=== PATIENT | female | born 1995 | race Caucasian/White ===

== ENCOUNTER 2017-03-19 19:58 | Emergency (ER) | payer BC, OTHER ==
[~2017-03-19] VITALS: Ht 162.6 cm; Wt 63.5 kg
[~2017-03-19 19:58] MED LIST: BCPILLS PO
[2017-03-19 20:24] VITALS: Ht 162.6 cm; Wt 63.5 kg
[2017-03-19 21:08] LABS: INFLUENZA B ANTIGEN Neg for Influ B (NEG)
[2017-03-19 21:28] VITALS: TEMP 36.7
[2017-03-19] MEDS ORDERED: SODIUM CHLORIDE 0.9% 1000ML 1,000 ML IV STA (21:53)
[2017-03-19] MEDS ORDERED: ONDANSETRON INJ 2 MG/ML 2 ML VIAL IV STA (21:53)
[2017-03-19 22:23] LABS: BASO % 0.1 %; BASO ABS # 0.01 K/uL (0-0.2); EOS % 0.1 %; EOS ABS # 0.01 K/uL (0-0.5); HEMATOCRIT 46.2 % (37-47); HEMOGLOBIN 16.4 g/dL (12.0-16.0); IG# 0.03 K/uL (0.00-0.02); LYMPH % 3.3 %; LYMPH ABS # 0.43 K/uL (1.2-3.4); MEAN CORPUSCULAR HEMOGLOBIN 31.2 pg (25-34); MEAN CORPUSCULAR HGB CONC 35.5 g/dl (32-36); MEAN PLATELET VOLUME 10.3 fL (7.4-10.4); MONO % 3.1 %; NEUT % 93.2 %; NEUT ABS # 11.98 K/uL (1.4-6.5); PLATELET COUNT 229 K/uL (130-400); RED CELL DISTRIBUTION WIDTH CV 13.1 % (11.5-14.5); RED CELL DISTRIBUTION WIDTH SD 41.5 fL (36.4-46.3); WHITE BLOOD COUNT 12.86 K/uL (4.8-10.8)
[2017-03-19 22:41] LABS: CALCIUM 9.3 mg/dl (8.5-10.1); CREATININE 0.99 mg/dl (0.60-1.20); POTASSIUM 4.3 mmol/L (3.5-5.1)
[2017-03-19] MEDS ORDERED: ONDA4TAB10 SL (23:07)
--- NOTE | 2017-03-19 23:08 | EMERGENCY ROOM VISIT NOTE ---
History First contact with patient: 21:34 Chief Complaint: GI ASSESSMENT Stated Complaint: VOMITING AND DIARRHEA SINCE 6AM Nursing Triage Summary: Pt states she woke up @ 0630 with n/v/d. [place] emesis and bm was @ 1999. History of Present Illness The patient is a 21 year old female who presents to the Emergency Room with complaints of vomiting and diarrhea. The patient reports she has had persistent nausea, vomiting and diarrhea since early this morning. She has been unable to keep any fluids down. She reports she has been dry heaving. She denies any sick contacts. She denies any recent antibiotic use. She does report that she ate at a [employer] yesterday, however several other people also ate there and did not become sick. She denies any foreign travel. She denies any unusual food or water sources. She denies abdominal pain, blood in her stools/vomit or fevers. Review of Systems A complete 10 point review of systems was reviewed with the patient with pertinent positives and negatives as per history of present illness. All else were negative. Past Medical/Surgical History Surgical Problems: (1) No significant past surgical history Family History No pertinent family history Social History Smoking Status: Current Every Day Smoker Drug Use: none Housing Status: lives with family Occupation Status: student Current/Historical Medications Scheduled Control Pills ( Control Pills), 1 TAB PO DAILY Ondasetron Odt (Zofran Odt), 4 MG SL Q6H Physical Exam Vital Signs Date Time Temp Pulse Resp B/P (MAP) Pulse Ox O2 Delivery O2 Flow Rate FiO2 03/19/17 23:34 90 16 114/67 100 03/19/17 21:28 36.7 109 20 102/74 98 Room Air 03/19/17 20:24 36.9 116 18 134/87 97 Room Air Physical Exam VITALS: Vitals are noted on the nurse's note and reviewed by myself. Vital signs stable. GENERAL: This is a 21-year-old female, in no acute distress, nondiaphoretic, well-developed well-nourished. EARS: External auditory canals clear, tympanic membranes pearly bourgeois without erythema or effusion bilaterally. EYES: Pupils equal round and reactive to light and accommodation. MOUTH: Mucous membranes moist. Tonsils are not enlarged. Pharynx without erythema or exudate. HEART: Regular rate and rhythm without murmurs gallops or rubs. LUNGS: Clear to auscultation bilaterally without wheezes, rales or rhonchi. ABDOMEN: Positive bowel sounds x 4. Soft, nontender, without masses or organomegaly. NEURO: Patient was alert and oriented to person place and time. Medical Decision & Procedures Laboratory Results 03/19/17 22:05 Red Blood Count 5.25, Mean Corpuscular Volume 88.0, Mean Corpuscular Hemoglobin 31.2, Mean Corpuscular Hemoglobin Concent 35.5, Mean Platelet Volume 10.3, Neutrophils (%) (Auto) 93.2, Lymphocytes (%) (Auto) 3.3, Monocytes (%) (Auto) 3.1, Eosinophils (%) (Auto) 0.1, Basophils (%) (Auto) 0.1, Neutrophils # (Auto) 11.98, Lymphocytes # (Auto) 0.43, Monocytes # (Auto) 0.40, Eosinophils # (Auto) 0.01, Basophils # (Auto) 0.01 03/19/17 22:05 Test 03/19/17 20:30 03/19/17 22:05 Influenza Type A Antigen Neg for Influ A (NEG) Influenza Type B Antigen Neg for Influ B (NEG) White Blood Count 12.86 K/uL (4.8-10.8) Red Blood Count 5.25 M/uL (4.2-5.4) Hemoglobin 16.4 g/dL (12.0-16.0) Hematocrit 46.2 % (37-47) Mean Corpuscular Volume 88.0 fL (80-100) Mean Corpuscular Hemoglobin 31.2 pg (25-34) Mean Corpuscular Hemoglobin Concent 35.5 g/dl (32-36) Platelet Count 229 K/uL (130-400) Mean Platelet Volume 10.3 fL (7.4-10.4) Neutrophils (%) (Auto) 93.2 % Lymphocytes (%) (Auto) 3.3 % Monocytes (%) (Auto) 3.1 % Eosinophils (%) (Auto) 0.1 % Basophils (%) (Auto) 0.1 % Neutrophils # (Auto) 11.98 K/uL (1.4-6.5) Lymphocytes # (Auto) 0.43 K/uL (1.2-3.4) Monocytes # (Auto) 0.40 K/uL (0.11-0.59) Eosinophils # (Auto) 0.01 K/uL (0-0.5) Basophils # (Auto) 0.01 K/uL (0-0.2) RDW Standard Deviation 41.5 fL (36.4-46.3) RDW Coefficient of Variation 13.1 % (11.5-14.5) Immature Granulocyte % (Auto) 0.2 % Immature Granulocyte # (Auto) 0.03 K/uL (0.00-0.02) Anion Gap 8.0 mmol/L (3-11) Est Creatinine Clear Calc Drug Dose 79.0 ml/min Estimated GFR () 95.7 Estimated GFR (Non- 82.6 BUN/Creatinine Ratio 17.4 (10-20) Calcium Level 9.3 mg/dl (8.5-10.1) Human Chorionic Gonadotropin, Qual NEG (NEG) Medications Administered Medications (Trade) Dose Ordered Sig/Nikhil Route Start Time Stop Time Status Last Admin Dose Admin Sodium Chloride 1,000 ml @ 999 mls/hr Q1H1M STAT IV 03/19/17 21:53 03/19/17 22:53 DC 03/19/17 22:09 999 MLS/HR Ondansetron HCl (Zofran Inj) 4 mg NOW STAT IV 03/19/17 21:53 03/19/17 21:55 DC 03/19/17 22:08 4 MG Ondansetron HCl (ZOFRAN ODT 4MG Home Pack) 1 homepack UD ONCE PO 03/19/17 23:15 03/19/17 23:16 DC 03/19/17 23:28 1 HOMEPACK Medical Decision Differential diagnosis includes gastroenteritis, colitis, IBS, among others. The patient was evaluated as above. She presents with nausea, vomiting and diarrhea. Labs are unremarkable. Nontender abdominal exam. She was treated with IV fluids and Zofran with significant improvement. She was able to tolerate fluids and crackers without issues. She was given prescription for Zofran and instructed to follow-up with her primary care provider. She verbalized understanding of my assessment and treatment plan was discharged home in good condition. Medication Reconcilliation Current Medication List: was personally reviewed by me Blood Pressure Screening Patient's blood pressure: Normal blood pressure Impression Primary Impression: Nausea, vomiting, and diarrhea Departure Information Dispostion Home / Self-Care Condition GOOD Prescriptions Ondasetron Odt (ZOFRAN ODT) 4 Mg Tab 4 MG SL Q6H for Nausea, #15 TAB Prov: Radha Fox PA-C 03/19/17 Referrals Kindra Pink M.D. (PCP) Patient Instructions My [facility] Additional Instructions You have been prescribed Zofran to be used for any nausea or vomiting. Take as prescribed. For pain control, you can use the following [id number]-[id number] medicines (if >12 yo): - Regular strength (325mg/tab) Tylenol (acetaminophen) 2 tabs every 4-6 hours as needed. Do not exceed 12 tablets in a 24 hour period. Avoid taking more than 4 grams (4000 mg) of Tylenol per day. This includes any other sources of acetaminophen you may take on a regular basis. - Regular strength (200 mg/tab) Advil (ibuprofen) 1-2 tabs every 4-6 hours as needed. Do not exceed a dose of 3200 mg per day. Make sure to rest and drink plenty of fluids. Follow-up with your primary care provider this week as needed. Return to the emergency department with worsening vomiting, weakness/passing out , inability to keep fluids down, or any other new/concerning symptoms.
[2017-03-19] MEDS ORDERED: ONDANSETRON HOME PACK 4MG OD TAB PO ONE (23:15)
[2017-03-19 23:34] VITALS: BP 114/67; PULSE 90; O2SAT 100
== END 2017-03-19 23:30 | disposition home or self-care (01) ==
LOC: C.EDB 20:00 → C.EDC 23:30
DX: R11.2 Nausea with vomiting, unspecified (principal); R19.7 Diarrhea, unspecified; F17.200 Nicotine dependence, unspecified, uncomplicated; Z79.3 Long term (current) use of hormonal contraceptives

== ENCOUNTER 2017-06-28 23:45 | Emergency (ER) | payer BC ==
[~2017-06-28] VITALS: Ht 162.6 cm; Wt 63.5 kg
[~2017-06-28 23:45] MED LIST changes: +ONDA4TAB10 SL
[2017-06-28 23:49] VITALS: TEMP 36.4; Ht 162.6 cm; Wt 63.5 kg
--- NOTE | 2017-06-29 00:05 | EMERGENCY ROOM VISIT NOTE ---
History Report prepared by Tabby: Jeancarlos Wynn Under the Supervision of: Georges GuzmanO. First contact with patient: 23:54 Chief Complaint: HEADACHE Stated Complaint: SEVERE HEADACHE History of Present Illness The patient is a 21 year old female who presents to the Emergency Room with complaints of persistent headache since 1529 today. She reports developing neck pain associated with a headache when she came home from work at 0 today. She describes the pain as sharp and a pressure around the crown of her head. She is unsure what caused the headache. 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 She reports a history of headaches, though this is worse. She denies any recent stress. She denies any fevers, chills, nausea, vomiting, or sick contacts. She took one Aleve and two Motrin 1.5 hours ago. She denies any other underlying medical problems. She denies any tick or other insect bites. She reports abdominal cramping associated to her period. She denies any leg cramping. Per mother, the patient has not had any changes in her speech. Source of History: patient, parent Onset: 1529 today Position: head Quality: ache Timing: other (persistent) Associated Symptoms: + neck pain, + abdominal pain (cramping), No fevers, No chills, No nausea, No vomiting Note: Denies any sick contacts, insect bites, or leg cramping. Review of Systems See HPI for pertinent positives & negatives. A total of 10 systems reviewed and were otherwise negative. Past Medical & Surgical Surgical Problems: (1) No significant past surgical history Family History No pertinent family history Social History Smoking Status: Never Smoker Drug Use: none Marital Status: single Housing Status: lives with family Occupation Status: employed, student Current/Historical Medications Scheduled Control Pills ( Control Pills), 1 TAB PO DAILY Ondasetron Odt (Zofran Odt), 4 MG SL Q6H Allergies Coded Allergies: No Known Allergies (Unverified , 09/01/15) Physical Exam Vital Signs Date Time Temp Pulse Resp B/P (MAP) Pulse Ox O2 Delivery O2 Flow Rate FiO2 06/29/17 01:20 76 20 113/62 98 Room Air 06/28/17 23:49 36.4 57 18 110/70 97 Room Air Physical Exam HEENT: Head - normocephalic and atraumatic Pupils are equal, round, and reactive to light. Extraocular eye muscles are intact, and sclera are anicteric. Nose - moist nasal mucosa without discharge. Mouth - moist buccal mucosa. Oropharynx is nonerythematous and there is no tonsillar exudate or edema noted. Neck: Supple; no JVD, nuchal rigidity, cervical lymphadenopathy. moderate right sided cervical paraspinal muscle spasm and right trapezius spasm. Heart: Regular rate and rhythm. There is a normal S1 and S2 with no murmurs, clicks, or gallops appreciated. Lungs: Clear to auscultation bilaterally with no wheezes, rales, or rhonchi. Abdomen: Soft, completely nontender, nondistended, with good bowel sounds. There are no palpable pulsatile masses or hepatosplenomegaly. There is no guarding, rigidity, or rebound noted. Extremities: No evidence of cyanosis, clubbing, or edema. There are easily palpable peripheral pulses. Skin: warm and dry with good turgor and no rashes. Medical Decision & Procedures Laboratory Results 06/29/17 00:10 Red Blood Count 4.61, Mean Corpuscular Volume 87.9, Mean Corpuscular Hemoglobin 30.4, Mean Corpuscular Hemoglobin Concent 34.6, Mean Platelet Volume 10.0, Neutrophils (%) (Auto) 56.0, Lymphocytes (%) (Auto) 32.5, Monocytes (%) (Auto) 8.6, Eosinophils (%) (Auto) 2.2, Basophils (%) (Auto) 0.5, Neutrophils # (Auto) 4.87, Lymphocytes # (Auto) 2.83, Monocytes # (Auto) 0.75, Eosinophils # (Auto) 0.19, Basophils # (Auto) 0.04 06/29/17 00:10 Test 06/29/17 00:10 White Blood Count 8.70 K/uL (4.8-10.8) Red Blood Count 4.61 M/uL (4.2-5.4) Hemoglobin 14.0 g/dL (12.0-16.0) Hematocrit 40.5 % (37-47) Mean Corpuscular Volume 87.9 fL (80-100) Mean Corpuscular Hemoglobin 30.4 pg (25-34) Mean Corpuscular Hemoglobin Concent 34.6 g/dl (32-36) Platelet Count 235 K/uL (130-400) Mean Platelet Volume 10.0 fL (7.4-10.4) Neutrophils (%) (Auto) 56.0 % Lymphocytes (%) (Auto) 32.5 % Monocytes (%) (Auto) 8.6 % Eosinophils (%) (Auto) 2.2 % Basophils (%) (Auto) 0.5 % Neutrophils # (Auto) 4.87 K/uL (1.4-6.5) Lymphocytes # (Auto) 2.83 K/uL (1.2-3.4) Monocytes # (Auto) 0.75 K/uL (0.11-0.59) Eosinophils # (Auto) 0.19 K/uL (0-0.5) Basophils # (Auto) 0.04 K/uL (0-0.2) RDW Standard Deviation 40.0 fL (36.4-46.3) RDW Coefficient of Variation 12.5 % (11.5-14.5) Immature Granulocyte % (Auto) 0.2 % Immature Granulocyte # (Auto) 0.02 K/uL (0.00-0.02) Anion Gap 6.0 mmol/L (3-11) Est Creatinine Clear Calc Drug Dose 88.8 ml/min Estimated GFR () 110.4 Estimated GFR (Non- 95.3 BUN/Creatinine Ratio 11.0 (10-20) Calcium Level 8.6 mg/dl (8.5-10.1) Laboratory results per my review. Medications Administered Medications (Trade) Dose Ordered Sig/Nikhil Route Start Time Stop Time Status Last Admin Dose Admin Ketorolac Tromethamine (Toradol Inj) 30 mg NOW STAT IV 06/29/17 00:13 06/29/17 00:16 DC 06/29/17 00:42 30 MG Procedure 0013: Ordered Toradol 30 mg IV ED Course 2355: Past medical records reviewed. The patient was evaluated in room B12B. A complete history and physical exam was performed. IV lock was established. Labs were drawn as above. 0013: Ordered Toradol 30 mg IV 0048: I reassessed the patient at this time. She received her pain medication. 0117: I reassessed the patient at this time. She is feeling better and resting comfortably. I discussed the results and treatment plan with the patient. I answered all pertaining questions that she had. She expressed understanding and verbalized agreement. The patient will be discharged home. Medical Decision The patient is a 21 year old female who presents to the ED with headache. Differential diagnosis includes cervical dysfunction, meningitis, tension headache, migraine, cervical strain, and trapezius spasm. Lab results showed: No leukocytosis. Stable H&H. Normal glucose. Normal renal function. This is a 21-year-old female patient who presents to the emergency department with a headache and neck pain. The patient has history of migraines but states that this feels unusual for her and seem to have originated in her neck. The mother became concerned when the patient was unable to fully flex her neck. The patient has no associated symptoms of illness such as fever, chills or body aches. The patient tried taking Motrin and Aleve at home without relief. While here in the emergency department, the patient received a dose of IV Toradol with complete relief of her symptoms. She has no leukocytosis on blood work. I have encouraged the patient to continue using NSAIDs at home for pain if necessary. She should follow-up with her PCP if she has persistent headaches. If she develops neck stiffness, fever or worsening symptoms, she can return here to the emergency department for further evaluation and spinal tap. Medication Reconcilliation Current Medication List: was personally reviewed by me Blood Pressure Screening Patient's blood pressure: Normal blood pressure Impression Primary Impression: Headache Additional Impression: Neck pain Scribe Attestation The scribe's documentation has been prepared under my direction and personally reviewed by me in its entirety. I confirm that the note above accurately reflects all work, treatment, procedures, and medical decision making performed by me. Departure Information Dispostion Home / Self-Care Referrals Kindra Pink M.D. (PCP) Forms HOME CARE DOCUMENTATION FORM, IMPORTANT VISIT INFORMATION Patient Instructions Headache Pain, My [facility], Neck Probs Additional Instructions Rest. apply heat to the neck. Take motrin - 600mg every 6 hours with food for pain. Follow up with PCP if pain persists Return to the ER for fever, worsening neck pain or stiffness Problem Qualifiers Primary Impression: Headache Headache type: unspecified Headache chronicity pattern: acute headache Intractability: not intractable Qualified Codes: R51 - Headache
[2017-06-29] MEDS ORDERED: KETOROLAC TROMETHAMINE 30 MG/ML VIAL IV STA (00:13)
[2017-06-29 00:36] LABS: BASO % 0.5 %; BASO ABS # 0.04 K/uL (0-0.2); EOS % 2.2 %; EOS ABS # 0.19 K/uL (0-0.5); HEMATOCRIT 40.5 % (37-47); IG# 0.02 K/uL (0.00-0.02); LYMPH % 32.5 %; LYMPH ABS # 2.83 K/uL (1.2-3.4); MEAN CELL VOLUME 87.9 fL (80-100); MEAN CORPUSCULAR HEMOGLOBIN 30.4 pg (25-34); MEAN CORPUSCULAR HGB CONC 34.6 g/dl (32-36); MONO % 8.6 %; MONO ABS # 0.75 K/uL (0.11-0.59); NEUT ABS # 4.87 K/uL (1.4-6.5); PLATELET COUNT 235 K/uL (130-400); RED CELL DISTRIBUTION WIDTH CV 12.5 % (11.5-14.5)
[2017-06-29 00:45] LABS: CALCIUM 8.6 mg/dl (8.5-10.1); CREATININE 0.88 mg/dl (0.60-1.20); POTASSIUM 3.8 mmol/L (3.5-5.1)
[2017-06-29 01:20] VITALS: BP 113/62; PULSE 76; O2SAT 98
== END 2017-06-29 01:40 | disposition home or self-care (01) ==
LOC: C.EDB 23:47
DX: R51 Headache (principal); M54.2 Cervicalgia; Z79.3 Long term (current) use of hormonal contraceptives; Z79.899 Other long term (current) drug therapy

== ENCOUNTER 2023-11-20 07:36 | Inpatient (IN) ==
[2023-11-20] MEDS ORDERED: LIDOCAINE 1% LOCAL 20 ML VIAL INFIL PRN (09:23)
[2023-11-20] MEDS ORDERED: OXYTOCIN 30 UNITS/NSS 30 UNITS/500 ML BAG IV PRN (09:23)
--- NOTE | 2023-11-20 09:35 | History & Physical Report ---
Date of Service November 20, 2023 Assessment & Plan Admission and Anticipated Discharge Date Admission Date: November 20, 2023 History of Present Illness Chief Complaint: induction of labor Primary Care Provider: NO PCP 28 F P0000 at 38.3 weeks for IUGR. GBS is negative Allergies Allergy/AdvReac Type Severity Reaction Status Date / Time No Known Allergies Allergy Unverified 11/20/23 08:18 Home Medications Medication Instructions Recorded Confirmed Type 1 tab PO DAILY 11/20/23 11/20/23 History ondansetron HCl 4 mg tablet 4 mg PO Q6H 11/20/23 11/20/23 History Patient History Medical History Hx of tonsillitis Hypoglycemia Social History Smoking Status: Never smoker Hx Alcohol Use: No Hx Substance Use: No Preferred Language: Kenyan Communication Ability: Effective Operations Advisor Required: No Beliefs That Will Affect Care: None marital status: Kris Campos Current Living Situation: Spouse Feels Safe at Home: Yes Safety Concerns: Feels Safe At This Time OB History IUGR [employer]GER History neg Review of Systems All systems reviewed & are unremarkable except as noted in HPI & below Physical Exam Constitutional: WD/WN, vitals as above Eyes: PERRL, conjunctivae normal, anicteric sclerae Respiratory: normal respiratory effort, lungs clear to auscultation Cardiovascular: RRR, no murmur, no edema Gastrointestinal (Abdomen): Inspection/Auscultation: abdomen normal to inspection Musculoskeletal: Extremities: extremities normal to inspection Skin: no rashes, warm and dry Neurologic: patellar DTR's 2+ bilat, sensation intact Psychiatric: A+Ox3, euthymic affect Genitourinary: no vaginal lesions, no adnexal mass Manual OB Exam: + cervical dilation and + cervical effacement (cervix closed/25%/- 3/posterior/firm/vtx) OB Exam Monitor Tracing: + external FHT monitor used, + external uterine monitor used, + category I and + normal FHT variability Cervidil 10 mg placed vaginally Results & Data Vital Signs (Past 12 Hours) Vital Signs Temp Resp O2 Del Method 11/20/23 08:40 36.7 C 18 Room Air 11/20/23 08:25 36.7 C 18 Room Air Code Status & VTE Plan VTE Prophylaxis Plan VTE Prophylaxis will be ordered: No Monitoring External Monitor Cat 1
[2023-11-20 09:55] LABS: Hematocrit (blood only) 37.2 % (37.0-52.0); Hemoglobin 12.7 g/dl (12.0-18.0); Mean Corpuscular Hemoglobin 30.2 pg (25.0-34.0); Mean Corpuscular Hgb Conc 34.1 g/dL (32.0-36.0); Mean Corpuscular Volume 88.6 fL (80.0-100.0); Mean Platelet Volume 10.9 fL (9.4-12.4); Platelet Count 214 K/uL (130-400); RDW Coefficient of Variation 12.6 % (11.5-14.5); RDW Standard Deviation 40.4 fL (36.4-46.3); White Blood Count 10.04 K/ul (4.8-10.8)
[2023-11-20] MEDS: DINOPROSTONE 10 MG INSERT PV ONE (10:22)
[2023-11-21] MEDS: miSOPROStoL 50 MCG TAB PO PRN
[2023-11-21] MEDS: BUTORPHANOL TARTRATE 2 MG/ML VIAL IV ONE (05:33)
[2023-11-21] MEDS: LACTATED RINGER'S 1,000 ML IV PRN (07:20)
[2023-11-21] MEDS: miSOPROStoL 50 MCG TAB PO ONE (11:25)
[2023-11-21] MEDS: ONDANSETRON INJ 2 MG/ML 2 ML VIAL IV PRN (13:38)
[2023-11-21] MEDS: BUTORPHANOL TARTRATE 2 MG/ML VIAL IV PRN (13:40)
[2023-11-21] MEDS: OXYTOCIN 30 UNITS/NSS 30 UNITS/500 ML BAG IV PRN (16:50)
--- NOTE | 2023-11-21 17:46 | Anesthesiology Consultation ---
Date of Service November 21, 2023 Assessment & Plan (1) Encounter for pre-operative examination: Chart Review Chart Review: Acceptable Risk for Labor Epidural History Height/Weight Height: 5 ft 4 in Weight: 88.997 kg Allergies Allergy/AdvReac Type Severity Reaction Status Date / Time No Known Allergies Allergy Unverified 11/20/23 08:18 Medications Home Medications Medication Instructions Recorded Confirmed Last Taken 1 tab PO DAILY 11/20/23 11/20/23 11/19/23 21:00 ondansetron HCl 4 mg tablet 4 mg PO Q6H 11/20/23 11/20/23 11/20/23 07:00 Active Medications Generic Name Dose Route Start Last Admin Trade Name Freq PRN Reason Stop Dose Admin Butorphanol Tartrate 1 mg 11/21/23 11:17 11/21/23 17:25 Butorphanol Tartrate 2 Mg/Ml Vial IV 12/21/23 11:16 1 mg PRN PRN Administration Pain Lactated Ringer's 1,000 mls @ 125 mls/hr 11/20/23 09:23 11/21/23 16:45 Lr IV 11/22/23 09:22 125 mls/hr .Q8H PRN Infusion L&D Protocol Protocol Oxytocin 30 units in 500 mls @ 4 mls/hr 11/21/23 16:07 11/21/23 17:20 Pitocin 30 Units/Nss IV 11/23/23 16:06 0.24 units/hr .Q24H PRN 4 mls/hr Labor Induction/Augmentation Titration Protocol 0.24 UNITS/HR Misoprostol 50 mcg 11/21/23 00:00 11/21/23 00:00 Misoprostol 50 Mcg Tab PO 12/21/23 00:00 50 mcg Q4 PRN Administration induction Ondansetron HCl 4 mg 11/21/23 11:19 11/21/23 13:38 Ondansetron Inj 2 Mg/Ml 2 Ml Vial IV 12/21/23 11:18 4 mg Q4H PRN Administration Nausea Past Medical History Medical History (Updated 11/21/23 @ 17:45 by Horacio Belcher MD) Hx of tonsillitis Hypoglycemia Past Surgical History Surgical History (Updated 11/21/23 @ 17:45 by Horacio Belcher MD) No pertinent past surgical history Social History Smoking Status: Never smoker Hx Alcohol Use: No Hx Substance Use: No substance use type: does not use Physical Exam Vital Signs Last Vital Signs Temp 36.8 C 11/20/23 19:10 Resp 16 11/20/23 19:10 O2 Del Method Room Air 11/20/23 08:40 Testing Laboratory Results 11/20/23 09:35
[2023-11-21] MEDS: fentaNYL citrate PF 100 MCG/2 ML VIAL ONE (18:20)
[2023-11-21] MEDS: LIDOCAINE 2%/EPINEPHRINE 1:200,000 20 ML PF ONE (18:21)
[2023-11-21] MEDS: BUPIVACAINE 0.25% PF 30 ML VIAL ONE (18:21)
[2023-11-21] MEDS: fentANYL 2 MCG/ML BUPIVacaine 0.125%-NSS 100ML BAG ONE (18:25)
[2023-11-21] MEDS ORDERED: fentANYL 2 MCG/ML BUPIVacaine 0.125%-NSS 100ML BAG EPI PRN (18:27)
[2023-11-21] MEDS ORDERED: fentaNYL citrate PF 100 MCG/2 ML VIAL EPI PRN (18:27)
[2023-11-21] MEDS ORDERED: NALOXONE HCL 0.4 MG/1 ML VIAL/CARP IV PRN (18:27)
[2023-11-21] MEDS ORDERED: LIDOCAINE 2% MPF LOCAL 5 ML VIAL EPI PRN (18:27)
[2023-11-21] MEDS ORDERED: ePHEDrine sulfate 50 MG/ML AMP IV PRN (18:27)
[2023-11-21] MEDS ORDERED: SODIUM CHLORIDE 0.9% PF INJ 10 ML VIAL EPI PRN (18:27)
[2023-11-21] MEDS ORDERED: ONDANSETRON INJ 2 MG/ML 2 ML VIAL IV PRN (18:27)
[2023-11-21] MEDS ORDERED: NALOXONE HCL 1 MG in SODIUM CHLORIDE 0.9% 1,000 ML IV PRN (18:27)
[2023-11-21] MEDS ORDERED: ROPIVACAINE 0.5% PF 5 MG/ML 20 ML VIAL EPI PRN (18:27)
[2023-11-21] MEDS ORDERED: BUPIVACAINE 0.25% PF 30 ML VIAL EPI PRN (18:27)
[2023-11-21] MEDS: SODIUM CHLORIDE 0.9% PF INJ 10 ML VIAL ONE (18:53)
[2023-11-21] MEDS: ePHEDrine sulfate 50 MG/ML AMP ONE (18:53)
[2023-11-21] MEDS: BUPIVACAINE 0.25% PF 30 ML VIAL EPI STA (18:54)
[2023-11-21] MEDS: fentaNYL citrate PF 100 MCG/2 ML VIAL EPI STA (18:54)
[2023-11-21] MEDS: SODIUM CHLORIDE 0.9% PF INJ 10 ML VIAL EPI STA (18:54)
[2023-11-21] MEDS: LIDOCAINE 2%/EPINEPHRINE 1:200,000 20 ML PF EPI STA (18:54)
[2023-11-21] MEDS: METHYLERGONOVINE MALEATE 0.2 MG/ML AMP IM ONE (21:58)
[2023-11-21] MEDS ORDERED: HYDROCORTISONE ACETATE 25 MG SUPP PR PRN (22:04)
[2023-11-21] MEDS ORDERED: OXYTOCIN 30 UNITS/NSS 30 UNITS/500 ML BAG IV PRN (22:04)
[2023-11-21] MEDS ORDERED: ACETAMINOPHEN 325 MG TAB PO PRN (22:04)
[2023-11-21] MEDS ORDERED: oxyCODONE/ACETAMINOPHEN 5mg/325mg TAB PO PRN (22:04)
[2023-11-21] MEDS ORDERED: ACETAMINOPHEN W/CODEINE #3 1 TAB PO PRN (22:04)
--- NOTE | 2023-11-21 22:09 | Delivery Summary ---
Vaginal Delivery Summary Date of Service November 21, 2023 Vaginal Delivery Summary Patient has been followed in the office for care and delivery. She is well dated with a first trimester ultrasound. Her gestational age is 38 weeks 4 days. She had an ultrasound done at [facility] which showed intrauterine growth retardation. And this was the reason for her induction. She was induced with a series of p.o. Cytotec. Followed by IV Pitocin with epidural for pain control. She went to full dilatation and easily pushed out a live female via direct occiput anterior position over an intact perineum. Cord was allowed to pulse for 1 full minute. Cord was then clamped cut by the father. Cord blood was taken. With IV Pitocin running the placenta was removed intact. Inspection of the perineum revealed a superficial perineal laceration at 5:00. This was approximated with a running 3-0 chromic gut suture. Following dysphagic semination revealed no hematoma formation or sponges in the vagina. Quantitative blood loss was 60 mL. Patient tolerated the delivery well.
[2023-11-21] MEDS: DIPHTHER/TETAN/PERTUS Vaccine (Tdap, Adol/Adult) 0.5mL IM ONE (22:21)
[2023-11-21] MEDS: BENZOCAINE 20% SPRY 85 APPLN/85 GM CAN EXT PRN (23:31)
[2023-11-22 06:25] LABS: Hematocrit (blood only) 34.7 % (37.0-47.0); Mean Corpuscular Hemoglobin 30.4 pg (25.0-34.0); Mean Corpuscular Hgb Conc 34.6 g/dL (32.0-36.0); Mean Corpuscular Volume 87.8 fL (80.0-100.0); Mean Platelet Volume 11.3 fL (9.4-12.4); Platelet Count 194 K/uL (130-400); RDW Coefficient of Variation 12.9 % (11.5-14.5); RDW Standard Deviation 41.7 fL (36.4-46.3); Red Blood Count 3.95 M/uL (4.20-5.40); White Blood Count 15.44 K/ul (4.8-10.8)
[2023-11-22] MEDS: IBUPROFEN 600 MG TAB PO PRN (07:55)
--- NOTE | 2023-11-22 08:28 | Anesthesia Procedure Note ---
Date of Service November 22, 2023 Anesthesia Post Epidural Note Vital Signs Vital Signs: Temp Pulse Resp BP Pulse Ox O2 Del Method 36.6 C 87 16 108/68 97 Room Air 11/22/23 04:45 11/22/23 04:45 11/22/23 04:45 11/22/23 04:45 11/22/23 04:45 11/22/23 04:45 Notes Mental Status: alert / awake / arousable and participated in evaluation Nausea / Vomiting: adequately controlled Pain: adequately controlled Airway Patency, RR, SpO2: stable & adequate BP & HR: stable & adequate Hydration State: stable & adequate Neuraxial Anesthesia: was administered and sensory block is resolving Anesthetic Complications: no major complications apparent Epidural: Removed without complications and With tip intact
[2023-11-22] MEDS: PRENATAL VITAMIN 1 TAB PO SCH (08:42)
[2023-11-22] MEDS: DOCUSATE SODIUM 100 MG CAP PO SCH (08:42)
--- NOTE | 2023-11-22 11:33 | Obstetrical Progress Note ---
Date of Service November 22, 2023 Subjective Ambulation: ambulating normally Voiding: no voiding problems Passing Gas:: Yes Diet Tolerance:: regular diet Lochia:: Small Feeding Type:: breast feeding Current Pain Level(1-10): 0 doing well Physical Exam Constitutional WD/WN, vitals as above Gastrointestinal (Abdomen) Inspection/Auscultation: abdomen normal to inspection fundus firm below U Musculoskeletal Extremities: extremities normal to inspection Skin no rashes, warm and dry Neurologic patellar DTR's 2+ bilat, sensation intact Psychiatric A+Ox3, euthymic affect Results & Data Vital Signs (Past 12 Hours) Vital Signs Temp Pulse Resp BP Pulse Ox O2 Del Method 11/22/23 08:05 36.9 C 95 H 20 121/77 95 Room Air 11/22/23 04:45 36.6 C 87 16 108/68 97 Room Air 11/22/23 00:35 36.9 C 88 18 134/84 98 Room Air 11/22/23 00:00 36.8 C 73 16 135/73 Room Air Laboratory Results Laboratory Results - last 72 hr 11/20/23 11/22/23 09:35 05:33 WBC 10.04 15.44 H RBC 4.20 3.95 L Hgb 12.7 12.0 Hct 37.2 34.7 L MCV 88.6 87.8 MCH 30.2 30.4 MCHC 34.1 34.6 RDW Std Deviation 40.4 41.7 RDW Coeff of Blank 12.6 12.9 Plt Count 214 194 MPV 10.9 11.3 Treponema pallidum Ab Negative
[2023-11-22] MEDS: bisacodyL 5 MG TABEC PO SCH (19:57)
[2023-11-23 07:28] LABS: Hematocrit (blood only) 36.3 % (37.0-47.0); Hemoglobin 12.2 g/dl (12.0-16.0)
--- NOTE | 2023-11-23 08:37 | Obstetrical Progress Note ---
Date of Service November 23, 2023 Assessment & Plan Admission and Anticipated Discharge Date Admission Date: November 20, 2023 Subjective Patient is seen and examined. She feels well, no complaints. Ambulating without dizziness Voiding without difficulty Tolerating regular diet with out N&V Bleeding is minimal No fever/ chills/ CP/ SOB/ N&V/ Leg pain Breast feeding without problems Lab Results 11/20/23 11/22/23 11/23/23 Range/Units 09:35 05:33 06:37 WBC 10.04 15.44 H (4.8-10.8) K/ul RBC 4.20 3.95 L (4.20-6.10) M/uL Hgb 12.7 12.0 12.2 (12.0-18.0) g/dl Hct 37.2 34.7 L 36.3 L (37.0-52.0) % MCV 88.6 87.8 (80.0-100.0) fL MCH 30.2 30.4 (25.0-34.0) pg MCHC 34.1 34.6 (32.0-36.0) g/dL RDW Std Deviation 40.4 41.7 (36.4-46.3) fL RDW Coeff of Blank 12.6 12.9 (11.5-14.5) % Plt Count 214 194 (130-400) K/uL MPV 10.9 11.3 (9.4-12.4) fL Treponema pallidum Ab Negative (Negative) Vital Signs Temp Pulse Resp BP Pulse Ox O2 Del Method 11/22/23 22:31 36.8 C 75 16 128/80 95 Room Air Vital Signs Temp Pulse Resp BP Pulse Ox O2 Del Method 11/22/23 22:31 36.8 C 75 16 128/80 95 Room Air 11/22/23 18:58 36.4 C L 76 18 127/88 97 Room Air 11/22/23 15:30 36.6 C 83 20 119/77 97 Room Air 11/22/23 11:50 36.5 C 86 20 129/73 96 Room Air PE: General: Alert, orientedx3, NAD Abd: soft, NT, fundus firm, below Umbilicus Perineum intact, Lochia rubra minimal Ext; NT, no edema AP: 28 yo s/p , ppd# 2 VSS Afebrile doing well Continue routine care All questions were answered D/C home , f/u in office Results & Data Vital Signs (Past 12 Hours) Vital Signs Temp Pulse Resp BP Pulse Ox O2 Del Method 11/22/23 22:31 36.8 C 75 16 128/80 95 Room Air
[2023-11-23 09:07] VITALS: BP 125/85; PULSE 77; RESP 20; TEMP 98.1; O2SAT 96
[2023-11-23] MEDS ORDERED: bisacodyL 10 MG SUPP PR PRN (22:04)
== END 2023-11-23 11:45 | disposition home health service (06) | DRG 807 ==
LOC: MERGE 07:36 → 4S1 07:36 → EDSEX 07:36 → 4E2 11-22 00:35
DX: O70.0 First degree perineal laceration during delivery; Z37.0 Single live birth; O36.5930 Maternal care for other known or suspected poor fetal growth, third trimester, not applicable or unspecified; Z3A.38 38 weeks gestation of pregnancy